=== PATIENT | male | born 1985 | race Caucasian/White ===

== ENCOUNTER 2018-07-14 09:12 | Emergency (ER) | payer MEDICAID ==
[2018-07-14] MEDS ORDERED: 0.9 % SODIUM CHLORIDE 1,000 ML BAG IV ONE (09:21)
[2018-07-14] MEDS ORDERED: ONDANSETRON HCL IV 4 MG/2 ML VIAL IV ONE (09:21)
[2018-07-14] MEDS ORDERED: KETOROLAC 30 MG/ML VIAL IVP ONE (09:22)
--- NOTE | 2018-07-14 09:26 | Emergency Department Record ---
History of Present Illness - General Chief Complaint: Abdominal Pain Stated Complaint: ABD PAIN Time Seen by Provider: 07/14/18 09:19 Source: Patient Mode of Arrival: Ambulatory Limitations: No limitations - History of Present Illness Initial Comments: The patient is here due to the acute onset of R flank and RLQ AP about 4 hours ago. It is a severe aching pain associated with nausea and vomiting. He denies any back pain, dysuria, hematuria or fever. The patient denies any hx of similar issues. MD Complaint: Abdominal pain Onset/Timin -: Hour(s) Location: R Flank, RLQ Radiation: None Migration to: No migration Severity: Mild Severity scale (1-10): 10 Quality: Sharp Consistency: Constant Improves With: Nothing Worsens With: Nothing Associated Symptoms: Nausea, Vomiting - Related Data Previous Rx's Medication Instructions Recorded Ibuprofen [Motrin] 800 mg PO TID PRN #20 tab 07/14/18 Tamsulosin HCl [Flomax] 0.4 mg PO DAILY #7 cap.er.24h 07/14/18 Allergies Allergy/AdvReac Type Severity Reaction Status Date / Time Penicillins Allergy HIVES Verified 07/14/18 09:17 Travel Screening - Travel/Exposure Within Last 30 Days Have you traveled within the last 30 days?: No Review of Systems Constitutional: Denies: Chills, Fever Eyes: Denies: Eye discharge ENT: Denies: Congestion Respiratory: Denies: Cough, Dyspnea Cardiovascular: Denies: Arrhythmia Endocrine: Denies: Fatigue Gastrointestinal: Reports: Abdominal pain, Nausea, Vomiting. Denies: Diarrhea Genitourinary: Denies: Hematuria Musculoskeletal: Denies: Back pain Past Medical History - SOCIAL HISTORY Smoking Status: Current every day smoker Alcohol Use: Occasional Drug Use: Occasional Drug Use Detail:: Marijuana - RESPIRATORY Hx Respiratory Disorders: No - CARDIOVASCULAR Hx Cardio Disorders: No - NEURO Hx Neuro Disorders: No - GI Hx GI Disorders: No - Hx Genitourinary Disorders: No - ENDOCRINE Hx Endocrine Disorders: No - MUSCULOSKELETAL Hx Musculoskeletal Disorders: No - PSYCH Hx Psych Problems: No - HEMATOLOGY/ONCOLOGY Hx Hematology/Oncology Disorders: No Family Medical History Any Significant Family History?: No Physical Exam - General General Appearance: Alert, Oriented x3, Cooperative, No acute distress - Head Head exam: Atraumatic, Normocephalic, Normal inspection - Eye Eye exam: Normal appearance, PERRL - Neck Neck exam: Normal inspection, Full ROM. negative: Tenderness - Respiratory Respiratory exam: Normal lung sounds bilaterally. negative: Respiratory distress - Cardiovascular Cardiovascular Exam: Regular rate, Normal rhythm, Normal heart sounds - GI/Abdominal GI/Abdominal exam: Soft, Normal bowel sounds. negative: Rebound, Rigid, Tenderness - Extremities Extremities exam: Normal inspection, Full ROM, Normal capillary refill. negative: Tenderness - Back Back exam: Reports: Normal inspection - Neurological Neurological exam: Alert. negative: Motor sensory deficit Course Vital Signs 07/14/18 09:15 Temperature 97.7 F Pulse Rate 55 L Respiratory 20 Rate Blood Pressure 156/97 Pulse Ox 100 - Reevaluation(s) Reevaluation #1: The patient is doing a lot better at this time. His pain has pretty much resolved and he is resting comfortably. I did discuss the CT results with the patient and the need for F/U. 07/14/18 10:32 Reevaluation #2: The patient is doing a lot better. I did discuss the plan for f/u and the need to return for any worsening symptoms. 07/14/18 10:43 Medical Decision Making - Data Complexity MDM Data: Labs Ordered and/or Reviewed, X-Ray Ordered and/or Reviewed - Lab Data Result diagrams: 07/14/18 09:20 07/14/18 09:20 - Radiology Data Radiology results: Report reviewed (CT: 2.5 mm R UVJ stone with mild hydro.) Disposition Disposition: Discharge Clinical Impression: Ureteral stone with hydronephrosis Disposition: Home, Self-Care Condition: (2) Stable Instructions: Renal Colic (ED) Additional Instructions: Please drink plenty of fluids and strain your urine. Please take the Motrin and Flomax as directed. Please see your family doctor for recheck next week and return to the ER for any worsening pain, or any fever, or vomiting. Prescriptions: Ibuprofen [Motrin] 800 mg PO TID PRN #20 tab PRN Reason: Pain Tamsulosin HCl [Flomax] 0.4 mg PO DAILY #7 cap.er.24h Forms: Patient Portal Access Time of Disposition: 10:45 Quality - Quality Measures Quality Measures: N/A - Blood Pressure Screening View Details: Yes Does Patient Have Any of the Following: No Blood Pressure Classification: Pre-Hypertensive BP Reading Systolic Measurement: 102 Diastolic Measurement: 89 Screening for High Blood Pressure: < Pre-Hypertensive BP, F/U Documented > [ [id number]] Pre-Hypertensive Follow-up Interventions: Referral to alternative/primary care provider.
[2018-07-14 09:28] LABS: HEMATOCRIT 47.8 % (42.0-52.0); HEMOGLOBIN 16.5 gm/dl (14.0-18.0); MEAN CELL VOLUME 90.9 fl (81-97); MEAN CORPUSCULAR HEMOGLOBIN 31.4 pg (27-33); MEAN CORPUSCULAR HGB CONC 34.5 g/dl (32-36); MEAN PLATELET VOLUME 10.2 fl (7.4-10.4); PLATELET COUNT 237 K/uL (130-400); RED BLOOD COUNT 5.26 M/uL (4.40-5.70); RED CELL DISTRIBUTION WIDTH 12.2 % (11.5-14.5); WHITE BLOOD COUNT W/O DIFF 13.3 K/uL (4.2-12.2)
[2018-07-14 09:39] LABS: BLOOD UREA NITROGEN 18 mg/dL (6-20); CREATININE 1.1 mg/dL (0.7-1.2); EST GLOMERULAR FILTRATION RATE > 60 mL/min
[2018-07-14 09:40] LABS: TOTAL PROTEIN 7.5 g/dL (6.6-8.7)
[2018-07-14 09:42] LABS: GLUCOSE,RANDOM 159 mg/dL (74-109)
[2018-07-14 09:44] LABS: ALBUMIN 4.9 g/dL (4.0-5.0); ALT/SGPT 18 U/L (<41); AST/SGOT 14 U/L (10.0-50.0)
[2018-07-14 09:45] LABS: ALKALINE PHOSPHATASE 57 U/L (40-129); LIPASE 26 U/L (13-60)
[2018-07-14 09:48] LABS: BILIRUBIN,DIRECT < 0.2 mg/dL (0-0.3)
[2018-07-14 10:20] LABS: URINE APPEARANCE CLEAR; URINE BILIRUBIN SMALL (NEGATIVE); URINE BLOOD LARGE (NEGATIVE); URINE COLOR YELLOW; URINE GLUCOSE (UA) NEGATIVE (NEGATIVE); URINE KETONE TRACE (NEGATIVE); URINE LEUKOCYTE ESTERASE NEGATIVE (NEGATIVE); URINE NITRITE NEGATIVE (NEGATIVE); URINE UROBILINOGEN 0.2 E.U./dL (0.20 - 1.00)
[2018-07-14 10:40] LABS: URINE CALCIUM OXALATE CRYSTALS 4+ /hpf; URINE EPITHELIAL CELLS 0 - 2 (FEW); URINE MUCUS MODERATE; URINE WBC 0 - 2 (0-2/hpf)
--- NOTE | 2018-07-15 15:05 | CT SCAN REPORT ---
EXAM: EMERGENCY CT SCAN OF THE ABDOMEN AND PELVIS WITHOUT CONTRAST HISTORY: RIGHT LOWER QUADRANT PAIN, POSSIBLE KIDNEY STONE. TECHNIQUE: Axial CT scan of the abdomen and pelvis was performed without oral or IV contrast. Comparison: None. FINDINGS: No calcified gallstones are seen within the gallbladder. There are tiny bilateral intrarenal calcifications more numerous on the left than the right consistent with bilateral currently nonobstructing intrarenal calculi, however, there is also mild hydronephrosis and hydroureter on the right with the dilated right ureter followed down to the region of the right UVJ where it leads to a tiny calcification only about 2.5 mm in size. Additional prone images were obtained and this calcification remains along the nondependent posterior wall of the bladder in the prone position consistent with its location still within the right UVJ rather than free within the bladder lumen. No hydronephrosis or hydroureter on the left with no left ureteral calculus seen and no actual bladder calculus evident. Evaluation of the bowel and viscera is quite limited without oral or IV contrast. Given this limitation, no definite hepatic, splenic, adrenal, pancreatic, or renal mass identified. The appendix is visualized and appears of normal caliber with no appendicitis evident. No free intraperitoneal air or free intraperitoneal fluid identified. There is some mild depression of the superior end plate of T12 and the inferior end plate of T9 and T10 probably representing some Schmorl's node type defects. IMPRESSION: 1. APPEARANCE CONSISTENT WITH AN APPROXIMATELY 2.5 MM DISTAL RIGHT URETERAL CALCULUS AT THE RIGHT UVJ CAUSING A COMPONENT OF OBSTRUCTION. 2. ADDITIONAL BILATERAL CURRENTLY NONOBSTRUCTING INTRARENAL CALCULI. 3. NO APPENDICITIS EVIDENT. NO FREE AIR OR FREE FLUID EVIDENT. 4. 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 JOB NUMBER: [id number] [facility]
== END 2018-07-14 11:00 | disposition home or self-care (01) ==
LOC: ER 09:12
DX: N13.2 Hydronephrosis with renal and ureteral calculous obstruction (principal); R10.31 Right lower quadrant pain; R11.2 Nausea with vomiting, unspecified; F17.210 Nicotine dependence, cigarettes, uncomplicated
CPT/HCPCS: 74176; 80048; 80076; 81001; 83690; 85027; 96361; 96374; 96375; 99284; J1885; J2405; J7030